=== PATIENT | female | born 1970 | race Caucasian/White ===

== ENCOUNTER 2021-08-17 14:30 | Outpatient (CLI) | payer BC, SELFPAY ==
--- NOTE | ~2021-08-17 | CT_ITS ---
EXAMINATION: CT abdomen pelvis w con DATE: 08/17/2021 15:19 INDICATION: Low abdominal pain. TECHNIQUE: Computed tomography (CT) of the abdomen and pelvis was performed with 100 mL of opaque 350 intravenous contrast. Automated exposure control and iterative reconstruction technique were employe d. The dose-length product was 1212.44 mGy-cm. COMPARISON: None. FINDINGS: The visualized portions of the lung bases are clear without pneumonia or pleural effusion. The heart size is normal. No pericardial effusion. The liver, spleen, gallbladder, pancreas, adrenal glands, and kidneys are normal. There is diverticulosis of the colon without evidence of diverticulit is. There are changes of appendectomy. There are no pathologically enlarged lymph nodes. There is an umbilical hernia containing fat. There is no free intraperitoneal fluid. There is moderate lumbar spo ndylosis. IMPRESSION: 1. Umbilical hernia containing fat. Reviewed, dictated and finalized at location B.
== END 2021-08-17 14:31 | disposition home or self-care (01) ==
PROVIDERS: PCP Physician Assistant; Visit Provider Physician Assistant
DX: R10.30 Lower abdominal pain, unspecified (principal); K42.9 Umbilical hernia without obstruction or gangrene
CPT/HCPCS: 74177; Q9967

== ENCOUNTER 2022-02-20 15:00 | Emergency (ER) | payer BC, SELFPAY ==
--- NOTE | ~2022-02-20 | CT_ITS ---
EXAMINATION: CTA chest PE protocol DATE: 02/20/2022 20:03 INDICATION: Chest pain, elevated d-dimer TECHNIQUE: Computed tomography angiography (CTA) of the chest was performed with 200 mL (due to repea t injection and second set of images) Omnipaque-350 intravenous contrast timed to evaluate the pulmon rita arteries. Coronal maximum intensity projection 3D-reconstructions were created by the technologis t. Automated exposure control and iterative reconstruction technique were employed. Exam dose: 537.1 6 mGy-cm total exam DLP. COMPARISON: 02/20/2022 PA and lateral chest FINDINGS: The pulmonary arteries are moderately opacified on the second set of images, which was perf ormed due to suboptimal opacification of the pulmonary arteries and motion artifact on the initial se t. No apparent pulmonary embolism. No thoracic aortic aneurysm or dissection is evident. Heart size is normal. No hilar or mediastinal m ass lesion or lymphadenopathy. No pulmonary consolidation or suspicious pulmonary mass lesion is noted. No pleural effusion or pneum othorax. The skeletal structures are unremarkable. IMPRESSION: No evidence of pulmonary embolism Reviewed, dictated and finalized at [facility]. Reviewed, dictated and finalized at location A.
--- NOTE | ~2022-02-20 | XR_ITS ---
XR chest 2V DATE: 02/20/2022 18:50 INDICATION: Upper mid scapular back pain TECHNIQUE: 2 views COMPARISON: None FINDINGS: Normal heart size. No hilar or mediastinal enlargement. The lungs are clear of infiltrate o r consolidation. No pleural effusion or pulmonary vascular congestion or pneumothorax. Included skeletal structures are unremarkable. IMPRESSION: No active cardiopulmonary disease Reviewed, dictated and finalized at location A.
[2022-02-20 17:54] VITALS: BP 137/86; PULSE 81; RESP 16; TEMP 36.6; O2SAT 99
[2022-02-20 18:10] VITALS: BP 137/86; PULSE 75; RESP 14; TEMP 36.3; O2SAT 98
--- NOTE | 2022-02-20 18:30 | ECG_ITS ---
Measurements Intervals [place] Rate: 69 P: 38 KS: 144 QRS: -1 QRSD: 104 T: 14 QT: 383 QTc: 412 Interpretive Statements SINUS RHYTHM LOW QRS VOLTAGE IN PRECORDIAL LEADS BORDERLINE ECG NO PREVIOUS ECG AVAILABLE FOR COMPARISON Electronically Signed On 02-22-2022 16:09:56 CDT by Eligio Madden M.D.
[2022-02-20 19:00] VITALS: BP 130/78; PULSE 69; RESP 14; O2SAT 99
[2022-02-20 19:04] LABS: Basophils Absolute Auto 0.07 K/mm3 (0.00-0.10); Basophils Percent Auto 0.8 % (0.0-1.0); Eosinophils Absolute Auto 0.25 K/mm3 (0.02-0.50); Eosinophils Percent Auto 2.7 % (1.0-6.0); Hematocrit 42.5 % (35.0-49.0); Hemoglobin 13.5 g/dL (12.0-15.0); Immature Granulocyte Absolute 0.04 K/mm3 (0.00-0.00); Immature Granulocyte Percent A 0.4 % (0.0-0.0); Lymphocytes Absolute Auto 2.13 K/mm3 (1.10-4.50); Mean Corpuscular HGB Conc 31.8 g/dL (32.0-36.0); Mean Corpuscular Hemoglobin 27.6 pg (27.0-31.0); Mean Corpuscular Volume 86.7 fL (78.0-102.0); Monocytes Absolute Auto 0.48 K/mm3 (0.10-0.90); Monocytes Percent Auto 5.2 % (2.0-11.0); Neutrophils Absolute Auto 6.3 K/mm3 (1.7-7.2); Neutrophils Percent Auto 67.9 % (50.0-70.0); Platelet Count Result 247 K/mm3 (150-420); Red Cell Distribution Width 12.8 % (11.6-14.4); White Blood Count 9.3 K/mm3 (4.8-10.8)
[2022-02-20 19:23] LABS: Alanine Aminotransferase 26 U/L (14-59); Albumin Level 4.3 g/dL (3.4-5.0); Alkaline Phosphatase 124 U/L (46-116); Anion Gap 7 mmol/L (8-16); Aspartate Amino Transferase 18 U/L (15-37); Bilirubin,Total 0.8 mg/dL (0.00-1.00); Blood Urea Nitrogen 14 mg/dL (7-18); Calcium 9.2 mg/dL (8.5-10.1); Carbon Dioxide 27 mmol/L (21-32); Chloride 100 mmol/L (98-108); Estimated Glomerular Filt Rate > 60; Glucose 80 mg/dL (70-99); Osmolality Calculated 277 mOsm/kg (285-295); Potassium 3.6 mmol/L (3.5-5.1); Sodium 134 mmol/L (136-145); Total Protein 8.3 g/dL (6.4-8.2); Troponin I 4.3 ng/L (0.00-60.4)
[2022-02-20 19:24] LABS: D Dimer 1.05 mg/L (0.19-0.50)
[2022-02-20 20:00] VITALS: BP 159/86; PULSE 81; RESP 16; TEMP 36.6; O2SAT 98
--- NOTE | 2022-02-20 21:42 | ED.GENADULT ---
HPI - General Adult General Chief complaint: Back Pain/Injury Stated complaint: doctor recommended ekg Time Seen by Provider: 02/20/22 17:45 Source: patient and family Mode of arrival: ambulatory Limitations: no limitations History of Present Illness HPI narrative: this is a 51-year-old female that presents with some midscapular back pain started earlier today was seen by work nurse and obtained an EKG that the nurse was concerned about. Otherwise the patient is not short of breath no nausea vomiting no chest pain no abdominal pain no flank pain no dysuria or hematuria. Currently no fever chills no diarrhea constipation no palpitations no dizziness no headache or blurry vision. Onset (ago): hour(s) Radiation: back Severity: moderate Pain Consistency: constant Related Data Home Medications Medication Instructions Recorded Confirmed levothyroxine 125 mcg tablet 125 mcg PO DAILY 08/31/21 02/20/22 (Synthroid) Allergies Allergy/AdvReac Type Severity Reaction Status Date / Time SHELLFISH Allergy Unknown LIPS NUMB, Uncoded 01/25/22 09:25 THROAT SWELLING Review of Systems Review of Systems: All systems reviewed & are unremarkable except as noted in HPI and below PMFSH Past Medical History Medical History HSV infection Hypothyroidism Vaginal delivery Surgical History Surgical History H/O: hysterectomy Ovaries and tubes were not removed History of appendectomy History of endometrial ablation Family History Family History Father Diabetes mellitus Heart disease Mother Hypertension Depression Anxiety Sibling Depression Anxiety Grandparent Breast cancer Lung cancer Testicular cancer Social History Social History Smoking status: Former smoker Smoking end date: 07/25/20 Alcohol intake: never Substance use: never Exam Const: General: healthy appearing Nutritional Appearance: well nourished Limitations: no limitations HENMT: Head: normal to inspection Mouth: Yes Normal oral and palatal mucosa present Eyes: Conjunctivae: conjunctivae normal Pupils: Equal, round and reactive pupils present EOM: EOMs intact bilaterally Direct Ophthalmoscopy: no photophobia Neck: Neck: normal visual inspection Chest: Chest palpation & inspection: normal inspection of the chest Resp: Effort & Inspection: normal respiratory effort Auscultation: clear to auscultation bilaterally Cardio: Rate: regular rate Rhythm: regular rhythm GI: GI Palp: Yes Soft to palpation : General: Yes bladder normal to palpation Back/Spine/Pelvis: Back: no CVA tenderness Skin: General skin exam: normal color Rashes: no rashes Wounds: no wounds Neuro: General: patient oriented x3 and moves all extremities Cranial nerves: Yes Nystagmus not present Extrem: General: normal to inspection, no clubbing, cyanosis or edema and no pedal edema Psych: Mental Status: mental status grossly normal Affect: normal affect Course Course Emergency Course: EKG reviewed with patient which shows normal sinus rhythm, patient had an elevated D-dimer and subsequently CTA shows no pulmonary embolism chest x-ray with no acute cardiopulmonary abnormalities. Vital Signs Vital signs: Vital Signs Temperature 36.6 C 02/20/22 17:54 Pulse Rate 81 02/20/22 17:54 Respiratory Rate 16 02/20/22 17:54 Blood Pressure 137/86 02/20/22 17:54 Pulse Oximetry 99 02/20/22 17:54 Temperature 36.6 C 02/20/22 20:00 Pulse Rate 81 02/20/22 20:00 Respiratory Rate 16 02/20/22 20:00 Blood Pressure 159/86 H 02/20/22 20:00 Pulse Oximetry 98 02/20/22 20:00 Oxygen Delivery Room Air 02/20/22 20:00 Medical Decision Making Vital Signs Vital Signs: Vital Signs Temperature 3
[2022-02-20 21:53] VITALS: BP 146/63; PULSE 77; RESP 18; TEMP 37; O2SAT 98
== END 2022-02-20 21:55 | disposition home or self-care (01) ==
PROVIDERS: Emergency Provider Emergency Medicine; PCP Physician Assistant
DX: R09.1 Pleurisy (principal)
CPT/HCPCS: 36415; 71046; 71275; 80053; 84484; 85025; 85380; 93005; 99284; Q9967

== ENCOUNTER 2023-08-16 07:50 | Outpatient (CLI) | payer BC, SELFPAY ==
--- NOTE | ~2023-08-16 | US_ITS ---
US thyroid INDICATION: Hypothyroidism TECHNIQUE: Real-time sonographic images of the thyroid gland were obtained. COMPARISON: No prior studies for comparison. FINDINGS: The right thyroid lobe measures 4 x 1.2 x 1.7 cm. The left thyroid lobe measures 3.6x1.2x1 .6 cm. There is heterogenous echotexture and echogenicity throughout the thyroid gland. No discrete n odules identified. Normal vascular flow is present. IMPRESSION: 1. Heterogenous thyroid without discrete nodule or abnormal vascularity. Reviewed, dictated and finalized at location A.
== END 2023-08-16 07:51 | disposition home or self-care (01) ==
LOC: CHSIMG 07:52
PROVIDERS: PCP Physician Assistant; Visit Provider Physician Assistant
DX: E07.9 Disorder of thyroid, unspecified (principal)
CPT/HCPCS: 76536